=== PATIENT | male | born 1995 | race Two or more races ===

== ENCOUNTER 2025-02-01 11:04 | Outpatient (CLI) | payer OTHER | END 2025-02-01 11:17 | disposition home or self-care (01) | LOC: SONOGRAMA 11:04 | PROVIDERS: ATTEND General Practice | DX: E78.2 Mixed hyperlipidemia (principal); R03.0 Elevated blood-pressure reading, without diagnosis of hypertension; R74.8 Abnormal levels of other serum enzymes; Z68.41 Body mass index [BMI] 40.0-44.9, adult ==